=== PATIENT | male | born 1995 | race Caucasian/White ===

== ENCOUNTER 2020-12-28 22:36 | Emergency (ER) | payer OTHER ==
[~2020-12-28 22:36] MED LIST: IMITREX50 MG PO; MAXIMUM DAILY1 EAC1 PO; PERCOCET 5-3251 EACH PO; ZOFRAN4 MG PO
[2020-12-28 22:51] LABS: BASOPHIL 0.4 % (0-2); EOSINOPHIL 0.3 % (0-5); HCT 51.3 % (42.0-52.0); HGB 18.2 g/dl (13.2-18.0); LYMPHOCYTE 27.2 % (15-48); MCH 32.3 pg (25.0-31.0); MCHC 35.5 g/dL (32.0-36.0); MONOCYTE 5.8 % (0-12); MPV 9.5 fL (6.0-9.5); NRBC 0; PLT 285 K/uL (150-400); RBC 5.64 M/uL (4.70-6.00); RDW 12.6 % (11.5-14.0); WBC 9.1 K/uL (4.0-10.5)
[2020-12-28 23:03] LABS: BILIRUBIN NEGATIVE (NEGATIVE); BLOOD NEGATIVE Ery/uL (NEGATIVE); CLARITY CLEAR (CLEAR); COLOR YELLOW (YELLOW); GLUCOSE (U) NORMAL (NORMAL); LEUKOCYTES NEGATIVE Leu/uL (NEGATIVE); NITRITE NEGATIVE (NEGATIVE); PROTEIN NEGATIVE (NEGATIVE); UROBILINOGEN 0.2 mg/dL (0.2-1.0)
[2020-12-28 23:07] LABS: AMPHETAMINES NEGATIVE (NEGATIVE); BARBITURATES NEGATIVE (NEGATIVE); ECSTASY (MDMA) NEGATIVE (NEGATIVE); MARIJUANA (THC) NEGATIVE (NEGATIVE); METHADONE NEGATIVE (NEGATIVE); OPIATES NEGATIVE (NEGATIVE); OXYCODONE NEGATIVE (NEGATIVE)
[2020-12-28 23:14] LABS: CKMB 0.8 ng/mL (0.0-3.6)
[2020-12-28 23:15] LABS: ACETAMINOPHEN (TYLENOL) < 2.0 ug/mL (10.0-30.0); ALBUMIN 4.7 g/dL (3.4-5.0); ALKALINE PHOSHATASE 96 U/L (46-116); ALT 32 U/L (16-63); AMYLASE 34 U/L (25-115); AST 15 U/L (15-37); BILIRUBIN - TOTAL 0.9 mg/dL (0.2-1.0); BUN 8 mg/dL (7-18); BUN/CREAT RATIO (CALC) 6.3 RATIO; CHLORIDE 105 mmol/L (98-107); CO2 (BICARBONATE) 27 mmol/L (21-32); CPK 143 U/L (39-308); CREATININE 1.27 mg/dL (0.67-1.17); GLOBULIN (CALCULATION) 4.1 g/dL; GLUCOSE 143 mg/dL (74-106); LIPASE 81 U/L (73-393); POTASSIUM 3.6 mmol/L (3.5-5.1); TOTAL PROTEIN 8.8 g/dL (6.4-8.2)
[2020-12-29] MEDS ORDERED: ROBAXIN500 MG PO (05:06)
[2020-12-29] MEDS ORDERED: IBUPROFEN800 MG PO (05:06)
== END 2020-12-29 05:40 | disposition home or self-care (01) ==
LOC: FER 22:36
PROVIDERS: Emergency Medicine Emergency Medical Services
DX: S02.2XXA Fracture of nasal bones, initial encounter for closed fracture (principal); T65.91XA Toxic effect of unspecified substance, accidental (unintentional), initial encounter; F17.210 Nicotine dependence, cigarettes, uncomplicated; V49.60XA Unspecified car occupant injured in collision with unspecified motor vehicles in traffic accident, initial encounter; Y92.410 Unspecified street and highway as the place of occurrence of the external cause
CPT/HCPCS: 36415; 70450; 71260; 72125; 72128; 72131; 80053; 80305; 81003; 82150; 82550; 82553; 83605; 83690; 84484; 85025; 93005; G0480; J2405; J7030; Q9967

== ENCOUNTER 2021-08-30 01:54 | Emergency (ER) | payer OTHER ==
[~2021-08-30 01:54] MED LIST changes: +IBUPROFEN800 MG PO; +ROBAXIN500 MG PO
== END 2021-08-30 07:09 | disposition other institution (70) ==
LOC: FER 01:54
DX: S02.2XXB Fracture of nasal bones, initial encounter for open fracture (principal); S02.842B Fracture of lateral orbital wall, left side, initial encounter for open fracture; S02.40DB Maxillary fracture, left side, initial encounter for open fracture; S02.40FB Zygomatic fracture, left side, initial encounter for open fracture; F17.200 Nicotine dependence, unspecified, uncomplicated; Z23 Encounter for immunization; Y04.0XXA Assault by unarmed brawl or fight, initial encounter; Y92.410 Unspecified street and highway as the place of occurrence of the external cause
CPT/HCPCS: 70450; 70486; 72125; 90471; 90715; 96374; J2270

== ENCOUNTER 2021-09-07 17:50 | Emergency (ER) | payer OTHER | END 2021-09-07 18:47 | disposition home or self-care (01) | LOC: FER 17:50 | DX: S22.41XA Multiple fractures of ribs, right side, initial encounter for closed fracture (principal); F17.200 Nicotine dependence, unspecified, uncomplicated; W22.8XXA Striking against or struck by other objects, initial encounter; Y92.009 Unspecified place in unspecified non-institutional (private) residence as the place of occurrence of the external cause | CPT/HCPCS: 71100 ==

== ENCOUNTER 2021-09-17 21:46 | Emergency (ER) | payer OTHER ==
[2021-09-17] MEDS ORDERED: NAPROXEN500 MG PO (22:22)
== END 2021-09-17 22:37 | disposition home or self-care (01) ==
LOC: FER 21:46
DX: S22.41XA Multiple fractures of ribs, right side, initial encounter for closed fracture (principal); F17.210 Nicotine dependence, cigarettes, uncomplicated; Y04.0XXA Assault by unarmed brawl or fight, initial encounter
CPT/HCPCS: 96372; 99283; J1100; J1885